=== PATIENT | female | born 1960 | race Two or more races ===

== ENCOUNTER 2024-02-07 07:37 | Day surgery (SDC) | payer MEDICARE, MEDICAID ==
[2024-02-07] VITALS (7 sets, daily range): BP systolic 115–134; BP diastolic 61–76; PULSE 74–80; RESP 12–18; O2SAT 98–99
[2024-02-07] MEDS ORDERED: IODIXANOL 320MG/ML 100ML BTL IV ONE (08:03)
[2024-02-07] MEDS ORDERED: PREG50CA PO (08:42)
[2024-02-07] MEDS ORDERED: INSU100I70 SC (08:42)
[2024-02-07] MEDS ORDERED: INSU100I28 IJ (08:42)
[2024-02-07] MEDS ORDERED: DAPA1TAB4 PO (08:42)
[2024-02-07] MEDS ORDERED: PANT40T PO (08:42)
[2024-02-07] MEDS ORDERED: METO10TA3 PO (08:42)
[2024-02-07] MEDS ORDERED: fentaNYL CITRATE 100 MCG/2 ML VL ONE (09:08)
[2024-02-07] MEDS ORDERED: LIDOCAINE 2%HCL (LOCAL ANESTH.) INJ 20ML MDV ONE (09:09)
[2024-02-07] MEDS ORDERED: MIDAZOLAM HCL 2MG/2ML 2ml VIAL (1mg/ml) ONE (09:09)
[2024-02-07] MEDS ORDERED: VERAPAMIL 2.5MG/ML INJ 2ML VIAL IV ONE (09:11)
[2024-02-07] MEDS ORDERED: SODIUM CHL 0.9% 0 ML ONE (09:13)
[2024-02-07] MEDS ORDERED: ANGIOMAX 250 MG VIAL IV ONE (09:13)
[2024-02-07] MEDS ORDERED: HEPARIN SODIUM (PORCINE) 5000 UNITS/ML 1ML VIAL ONE (09:37)
== END 2024-02-07 12:15 | disposition home or self-care (01) ==
LOC: CATH 07:37
PROVIDERS: ATTEND Internal Medicine Cardiovascular Disease
DX: I25.810 Atherosclerosis of coronary artery bypass graft(s) without angina pectoris (principal); I25.82 Chronic total occlusion of coronary artery; E11.9 Type 2 diabetes mellitus without complications; Z95.1 Presence of aortocoronary bypass graft; Z79.4 Long term (current) use of insulin
CPT/HCPCS: 93459; C1769; C1894; J1644; J2250; J3010; J7030; Q9967; 99152; 99153